=== PATIENT | male | born 1980 | race Caucasian/White ===

== ENCOUNTER 2016-10-07 16:59 | Emergency (ER) | payer BC ==
[~2016-10-07] VITALS: Ht 177.8 cm; Wt 82.7 kg
[2016-10-07 16:59] VITALS: Ht 177.8 cm; Wt 82.7 kg
--- OUTSIDE RECORDS SUMMARY | 2016-10-07 17:04 | XMS REPORT | Continuity of Care Document ---
Author Author [facility] Organization [facility] Address Unknown Phone Unavailable Allergies Active Description Code Type Severity Reaction Onset Reported/Identified Relationship to Patient Clinical Status Yes No Known Allergies Drug Allergy N/A N/A 01/10/2013 Yes No Known Drug Allergies Drug Allergy N/A N/A 01/10/2013 Yes No Known Food Allergies Food Allergy N/A N/A 01/10/2013 Yes No Known Medication Allergies NKMA N/A N/A 05/28/2014 Medications Problems Date Dx Coded Attending Type Code Diagnosis Diagnosed By 07/06/2012 Jacquelyn Mortensen MD A 525.9 DENTAL DISORDER NOS 01/10/2013 Jaya Francisco MD Admitting 719.46 JOINT PAIN-LOWER LEG 01/10/2013 Jaya Francisco MD Final 844.8 KNEE LEG SPRAIN NEC 01/10/2013 Jaya Francisco MD External E928.9 ACCIDENT NOS 09/04/2013 Jarad Cr MD Final 525.9 DENTAL DISORDER NOS 07/12/2014 Jaya Francisco MD Final 462 ACUTE PHARYNGITIS 07/12/2014 Jaya Francisco MD Reason 786.2 COUGH Procedures Results Encounters ACCT No. Visit Date/Time Discharge Status Pt. Type Provider Facility Loc./Unit Complaint [id number] 07/06/2012 00:59:00 2011 04:00:00 DIS Emergency Festus GUSMAN, Jacquelyn Block [facility]
--- NOTE | 2016-10-07 17:05 | NUR ---
PROVIDER DR IRELAND IN TO SEE PATIENT.
[2016-10-07] MEDS ORDERED: [UNRECOGNIZED DRUG - REMARK] (17:06)
[2016-10-07] MEDS ORDERED: NORMAL SALINE 1,000 ML IV ONE (17:10)
[2016-10-07] MEDS ORDERED: FAMOTIDINE 20 MG in FAMOTIDINE 20mg IVPB 50 ML IV ONE (17:15)
--- NOTE | 2016-10-07 17:27 | NUR ---
ELIMINATION PATIENT UP TO BR TO ATTEMPT TO VOID.
[2016-10-07 17:29] LABS: HCT - HEMATOCRIT 47.5 % (41-53); HGB - HEMOGLOBIN 17.2 GM/DL (13.5-17.5); MEAN CORPUSCULAR HGB 33.5 UUG (26-34); MEAN CORPUSCULAR HGB CONC(MCHC 36.2 GM/DL (31-37); MEAN CORPUSCULAR VOLUME 92.4 UM3 (80-100); MEAN PLATELET VOLUME 10.5 UM3 (9.4-12.4); RED BLOOD COUNT 5.14 M/MM3 (4.50-5.90); WBC - WHITE BLOOD COUNT 23.8 T/MM3 (4.5-11.0)
--- NOTE | 2016-10-07 17:30 | NUR ---
TO XRAY PER W/C.
[2016-10-07 17:34] LABS: BLOOD, URINE NEGATIVE (NEGATIVE); COLOR,URINE YELLOW (YELLOW); LEUKOCYTE ESTERASE ,URINE NEGATIVE (NEGATIVE); NITRITE,URINE NEGATIVE (NEGATIVE)
[2016-10-07 17:34] LABS: ALBUMIN 5.2 G/DL (3.5-5.0); ALBUMIN/GLOBULIN RATIO 1.4 RATIO (1.1-2.2); ALKALINE PHOSPHATASE 67 U/L (38-126); ALT (SGPT) 34 U/L (21-72); ANION GAP 20 MEQ/L (5-15); AST (SGOT) 33 U/L (17-59); BUN/CREATININE RATIO 18 RATIO (6-26); CHLORIDE 104 MEQ/L (98-107); CO2 - CARBON DIOXIDE 24 MEQ/L (22-30); CREATININE 0.8 MG/DL (0.8-1.5); GLOMERULAR FILTRATION RATE 111; GLUCOSE 150 MG/DL (75-110); LIPASE 35 U/L (23-300); POTASSIUM 3.7 MEQ/L (3.6-5); SODIUM 148 MEQ/L (134-144); TOTAL PROTEIN 8.8 G/DL (6.3-8.2)
--- NOTE | 2016-10-07 17:35 | ERPDOC ---
Departure Disposition Decision Date: Oct 07, 2016 Disposition Decision Time: 18:53 (CHIDI RIVERA MD) Disposition: 01 DISCHARGED HOME, SELF-CARE Impression Impression (UZAIR IRELAND MD) Impression: Primary Impression: Viral gastroenteritis Severity: Severe (CHIDI RIVERA MD) Condition: Improved Seen By: Physician only (CHIDI RIVERA MD) Patient Instructions: Gastroenteritis (ED) Problems/Meds/Labs Reviewed?: Yes Medications reviewed and manag: Yes (CHIDI RIVERA MD) Additional Instructions: Compazine 10 mg one tablet up to 4 times daily as needed for cramps or nausea May also use Tylenol up to 1000 mg 4 times daily as needed for pain or fever If not improved in 3-5 days return to ER or see your doctor Mental Status: Alert, Oriented (UZAIR IRELAND MD) Follow up care ordered?: Yes Mental Status: Alert (CHIDI RIVERA MD) Scripts Prochlorperazine Maleate (Compazine) 10 Mg Tablet 10 MG PO QID for N/V/CRAMPS, #30 TAB 0 Refills Prov: CHIDI RIVERA MD 10/07/16 HPI - Abdominal Pain General Chief Complaint: Nausea,Vomiting,Diarrhea Stated Complaint: NAUSEA Time Seen by Provider: 17:10 (UZAIR IRELAND MD) Time Seen by Provider: 18:07 (CHIDI RIVERA MD) HPI - Abdominal Pain Initial Comments 36-year-old male arrives by EMS for nausea vomiting. He's had no diarrhea. No fever. He began getting sick about midnight. Did not feel well and only had 2 beers and a sandwich for dinner last night. He states he is a vegan. (UZAIR IRELAND MD) Allergies: Coded Allergies: No Known Allergies (Unverified , 10/07/16) Past History Past Medical History Pt denies signifigant PMH (UZAIR IRELAND MD) Surgical History Denies Surgeries (UZAIR IRELAND MD) Family History Family History: Negative (UZAIR IRELAND MD) Social History Smoking Status: Never smoker Does patient use chewing tobac: No Substance Use Type: marijuana Alcohol Intake: 0-2 drinks per day Last Drink: hours (ago) (24) Marital Status: Single (UZAIR IRELAND MD) Record Review Pertinent history updated: Yes (UZAIR IRELAND MD) Review of Systems GI Upper Abdomen: see HPI Lower Abdomen: see HPI (UZAIR IRELAND MD) All other Systems All Other Systems: Reviewed and Negative (UZAIR IRELAND MD) Physical Exam General General Nourishment: well nourished, well developed, appears stated age, no acute distress General Body Habitus: well groomed (UZAIR IRELAND MD) Vitals and Pain First Documented Vital Signs Date Time Temp Pulse Resp B/P Pulse Ox O2 Delivery O2 Flow Rate FiO2 10/07/16 16:59 98.1 93 16 131/72 98 Room Air (CHIDI RIVERA MD) Vitals and Pain Weight: Kilograms: 82.700 Height (feet): 5 Height (inches): 10.00 Triage Pain Scale: (UZAIR IRELAND MD) Normal Exams: Head: Normocephalic w/o trauma Neck: Full range of motion, without adenopathy, JVD, bruits or thyromegaly Chest/Resp: Clear all conley, with good airflow, and symmetry bilaterally CV: Regular rate and rhythm, without murmur or gallop, Pulses 2+ all extremities, capillary refill, <2 seconds all ext., no pedal edema noted Abdomen: Bowel sounds positive, soft, non-tender, non-distended, no hepatosplenomegaly, masses or bruits noted Neurologic: Patient is alert, and oriented, cranial nerves, motor/sensory/ cerebellar, exams w/o gross deficits, to observation Psychiatric: Patient exhibits, appropriate attention, emotion and affect (UZAIR IRELAND MD) Differential Diagnoses Considering: Appendicitis, Biliary Colic, Bowel Obstruction, Diverticulitis, Gastroenteritis, Gastroparesis, Intussusception, Ischemic Bowel, Pancreatitis, Pyelonephritis (UZAIR IRELAND MD) Progress Results/Orders Orders Procedure Category Date Status Time Iv Lock (Ed Only) EDM 10/07/16 Transmitted 17:10 Nothing By Mouth (Ed EDM 10/07/16 Transmitted Only) 17:10 Cbc W/Auto LAB 10/07/16 Complete Diff-Reflex Manual 17:10 Cmp - Comprehensive LAB 10/07/16 Complete Metabolic 17:10 Lipase LAB 10/07/16 Complete 17:10 Kub W/Upright RAD 10/07/16 Taken 17:10 Normal Saline (Normal PHA 10/07/16 Complete Saline Iv) 17:10 Famotidine (Pepcid 20 PHA 10/07/16 Complete Mg Inj.) 17:15 UA, LAB 10/07/16 Complete Dip&Micro(Complete) & 17:31 Ct Abd/Pelvis CT 10/07/16 Logged W/Contrast Only Iohexol (Omnipaque) PHA 10/07/16 Complete 18:27 Normal Saline (Ns) PHA 10/07/16 Complete 18:27 Saline Flush (Iv PHA 10/07/16 Complete Flush) 18:27 (CHIDI RIVERA MD) Lab Results Laboratory Tests Test 10/07/16 17:19 10/07/16 17:31 White Blood Count 23.8T/MM3 Red Blood Count 5.14M/MM3 Hemoglobin 17.2GM/DL Hematocrit 47.5% Mean Corpuscular Volume 92.4UM3 Mean Corpuscular Hemoglobin 33.5UUG Mean Corpuscular Hemoglobin Concent 36.2GM/DL RDW Standard Deviation 41.6FL Platelet Count 282T/MM3 Mean Platelet Volume 10.5UM3 Immature Granulocyte % (Auto) % Neutrophils (%) (Auto) % Lymphocytes (%) (Auto) % Monocytes (%) (Auto) % Eosinophils (%) (Auto) % Basophils (%) (Auto) % Absolute Immature Granulocyte (auto T/MM3 Absolute Neutrophils (auto) T/MM3 Absolute Lymphocytes (auto) T/MM3 Absolute Monocytes (auto) T/MM3 Absolute Eosinophils (auto) T/MM3 Absolute Basophils (auto) T/MM3 Neutrophils % (Manual) 87.0% Band Neutrophils % 11.0% Monocytes % (Manual) 1.0% Basophils % (Manual) 1.0% Absolute Neutrophils (Manual) 20.7T/MM3 Band Neutrophils # 2.6T/MM3 Monocytes # (Manual) 0.2T/MM3 Basophils # (Manual) 0.2T/MM3 Red Cell Morphology Comment Normal Turbidity < 20 Sodium Level 148MEQ/L Potassium Level 3.7MEQ/L Chloride Level 104MEQ/L Carbon Dioxide Level 24MEQ/L Anion Gap 20MEQ/L Blood Urea Nitrogen 14.0MG/DL Creatinine 0.8MG/DL Glomerular Filtration Rate Calc 111 BUN/Creatinine Ratio 18RATIO Glucose Level 150MG/DL Calculated Osmolality 288MOSM/KG Calcium Level 10.0MG/DL Total Bilirubin 1.00MG/DL Icterus Index < 2 Aspartate Amino Transf (AST/SGOT) 33U/L Alanine Aminotransferase (ALT/SGPT) 34U/L Alkaline Phosphatase 67U/L Total Protein 8.8G/DL Albumin 5.2G/DL Globulin 3.6G/DL Albumin/Globulin Ratio 1.4RATIO Lipase 35U/L Chemistry Specimen Hemolysis < 15 Urine Collection Type Voided-not cc-midstr Urine Color Yellow Urine Turbidity Clear Urine pH 8.0 Urine Specific Reynolds 1.015 Urine Protein 2+ Urine Glucose (UA) Negative Urine Ketones 3+ Urine Blood Negative Urine Nitrite Negative Urine Bilirubin Negative Urine Urobilinogen 1.0EU/DL Urine Leukocyte Esterase Negative Urine RBC 0-1/HPF Urine WBC None seen/HPF Urine Squamous Epithelial Cells None seen Urine Amorphous Phosphates Few Urine Bacteria None seen Urine Mucus Present Urine Culture Indicated Cult not indicated (CHIDI RIVERA MD) Medications Current ED Medications Sodium Chloride 1,000 ml @ 1,000 mls/hr Q1H ONCE IV ; Start 10/07/16 at 17:10; Stop 10/07/16 at 18:09; Status DC Famotidine/ Famotidine (PEPCID 20 mg INJ./PEPCID 20mg in NS 50ml) 52 ml @ 100 mls/hr O ONCE IV Last administered on 10/07/16t 17:14; Start 10/07/16 at 17:15 ; Stop 10/07/16 at 17:46; Status DC Iohexol 1 bottle 1 bottle STK-MED ONCE .ROUTE ; Start 10/07/16 at 18:27; Stop at 18:28; Status DC Sodium Chloride (NS) 100 ml @ As Directed STK-MED ONCE .ROUTE ; Start 10/07/16 at 18:27; Stop 10/07/16 at 18:28; Status DC Sodium Chloride (Iv Flush) 10 ml STK-MED ONCE .ROUTE ; Start 10/07/16 at 18:27; Stop 10/07/16 at 18:28; Status DC (CHIDI RIVERA MD) Progress Progress CBC shows significant elevated white blood cell count with moderate left shift. Reexamination after 1 L normal saline and Zofran, Pepcid, shows persistent diffuse abdominal tenderness especially in the left side with mild guarding throughout. CT abdomen ordered - normal Patient declines any further medications, he is given a pack and prescription for Compazine to use at home, and instructions for follow-up as well as home care. (CHIDI RIVERA MD) UZAIR IRELAND MD Oct 07, 2016 17:35 CHIDI RIVERA MD Oct 07, 2016 18:25
[2016-10-07 17:41] LABS: BACTERIA,URINE NONE SEEN (NEGATIVE); RBC,URINE 0-1 /HPF (0-3); SQUAMOUS EPITHELIAL CELL,UR NONE SEEN; WBC,URINE NONE SEEN /HPF (0-5)
[2016-10-07 17:42] LABS: MUCUS,URINE PRESENT
--- NOTE | 2016-10-07 17:45 | NUR ---
BACK FROM XRAY
--- OUTSIDE RECORDS SUMMARY | 2016-10-07 18:08 | XMS REPORT | Continuity of Care Document ---
Author Author [facility] Organization [facility] Address Unknown Phone Unavailable Allergies Active Description [...] Status Pt. Type Provider Facility Loc./Unit Complaint [id number] 07/06/2012 00:59:00 2011 04:00:00 DIS Emergency Festus GUSMAN, Jacquelyn Block [facility]
[2016-10-07 18:12] LABS: BAND NEUTROPHILS # 2.6 T/MM3; BASOPHILS # (MANUAL) 0.2 T/MM3 (0-0.2); MONOCYTES # (MANUAL) 0.2 T/MM3 (0-0.8); NEUTROPHILS #(MANUAL)-ABSOLUTE 20.7 T/MM3 (1.8-7.7); TOTAL CELLS COUNTED 100 %
--- NOTE | 2016-10-07 18:22 | NUR ---
PROVIDER DR RIVERA IN TO SEE PATIENT.
[2016-10-07] MEDS ORDERED: NORMAL SALINE 100 ML ONE (18:27)
[2016-10-07] MEDS ORDERED: SALINE FLUSH 10ml SYRINGE ONE (18:27)
[2016-10-07] MEDS ORDERED: IOHEXOL 300 MG/ML 100ml INJECTION ONE (18:27)
--- NOTE | 2016-10-07 18:30 | NUR ---
TO CT PER CART.
--- NOTE | 2016-10-07 18:41 | NUR ---
BACK FROM CT
--- NOTE | 2016-10-07 18:52 | NUR ---
PROVIDER DR RIVERA IN TO SEE PATIENT.
[2016-10-07] MEDS ORDERED: PROC-14 PO (18:54)
[2016-10-07] MEDS ORDERED: PROCHLORPERAZINE 10MG (PrePack) SENT HOME ONE (19:00)
[2016-10-07 19:01] VITALS: BP 139/75; PULSE 99; RESP 16; TEMP 98.1; O2SAT 95
--- NOTE | 2016-10-08 08:19 | DI ---
Indication: ITS.REASON: generalized abd pain/tenderness, vomiting, elevated WBC PROCEDURE: CT ABD/PELVIS W/CONTRAST ONLY: Encounter: Initial Comparison: None Technique: Axial CT images were performed through the abdomen and pelvis after the administration of intravenous contrast. Coronal and sagittal two-dimensional reformats. Automated Exposure Control and Iterative Reconstruction dose reducing techniques were utilized. Contrast: Omnipaque 300 100 mL Findings: The lung bases are clear. The liver is unremarkable. The gallbladder, spleen, pancreas, adrenal glands and left kidney are normal. Small probable right renal cyst. Right kidney is otherwise normal. Retroaortic left renal vein noted incidentally. No abdominal or pelvic lymphadenopathy. Bladder is normal. Prostate and rectum are unremarkable. No bowel obstruction. The appendix is normal. Bone windows are normal for age. Impression: No acute disease process seen. There is a preliminary report by [facility]. .
--- NOTE | 2016-10-08 08:23 | DI ---
Indication: ITS.REASON: nausea vomiting PROCEDURE: KUB W/UPRIGHT: Encounter: Initial Comparison: None Findings: The visualized lung bases are clear. There is no free air on the upright view. The bowel gas pattern is nonobstructive and nonspecific. Gas is seen in nondilated small and large bowel to the level of the rectum. Moderate stool is seen throughout the colon. The bony structures are grossly unremarkable. Impression: Nonobstructive nonspecific bowel gas pattern. .
== END 2016-10-07 19:01 | disposition home or self-care (01) ==
LOC: ED 16:59
DX: A08.4 Viral intestinal infection, unspecified (principal)
CPT/HCPCS: 74020; 74177; 80053; 81001; 83690; 85025; 96365; 99284; J7050; Q9967